=== PATIENT | male | born 1985 | race Caucasian/White ===

== ENCOUNTER 2017-02-02 05:08 | Emergency (ER) | payer OTHER, BC ==
[~2017-02-02] VITALS: Ht 188 cm; Wt 102.1 kg
[2017-02-02] MEDS ORDERED: TETANUS/DIPHTHERIA TOX ADSORB ADULT 0.5ML SYR/VIAL (90714) IM ONE (05:45)
--- NOTE | 2017-02-02 06:20 | REPUSA ---
CLINICAL HISTORY: Back pain. TECHNIQUE: Multiple axial images were obtained through the L1-L2, L2-L3, L3-L4, L4-L5 and L5-S1 inter spaces. Images were also reconstructed in coronal and sagittal planes. COMMENTS: Mild degenerative dextroscoliosis apex at L3. Mild diffuse spondylytic changes and moderate multilevel degenerative disc disease. Moderate chronic compression fracture of L1 vertebral body. Mild chronic compression fracture of T12 vertebral body. Diffuse Schmorl's node formation. Acute mildly displaced fractures of the right transverse processes of L1 and L2. Straightening of lumbar lordosis is seen, suggesting muscular spasm. There is evidence of multilevel disk disease, demonstrated by osteophytosis ad endplate sclerosis. Evaluation of individual levels reveals the following: At L4-L5 and L5-S1, broad-based disk protrusion in conjunction with hypertrophic facet disease result s in moderate bilateral foraminal narrowing. Canal is mildly stenotic. At L3-L4, broad-based disk bulge, results in mild bilateral foraminal narrowing. Canal is patent. L1-L2 and L2-L3 levels are unremarkable. IMPRESSION: Acute mildly displaced fractures of the right transverse processes of L1 and L2. Spondylosis. Thank you for your kind referral of this patient.
[2017-02-02] MEDS ORDERED: TRAM50TA2 PO (06:45)
[2017-02-02 07:00] VITALS: BP 132/86
== END 2017-02-02 07:03 | disposition home or self-care (01) ==
LOC: EDBD 05:08 → M ED 06:24
DX: S32.019A Unspecified fracture of first lumbar vertebra, initial encounter for closed fracture (principal); S32.029A Unspecified fracture of second lumbar vertebra, initial encounter for closed fracture; W10.8XXA Fall (on) (from) other stairs and steps, initial encounter; Y92.89 Other specified places as the place of occurrence of the external cause; Y93.01 Activity, walking, marching and hiking; Y99.9 Unspecified external cause status

== ENCOUNTER → 2020-02-20 | Outpatient (CLI) | payer BC, OTHER ==
[~2020-02-20] MED LIST: ISOVUE-370 76% 100ML VIAL (Q9967) As Ordered ONE; TRAM50TA2 PO
--- NOTE | 2020-02-20 15:37 | REP ---
SOFT-TISSUE NECK CT STUDY WITH IV CONTRAST: HISTORY: Swelling of the neck. Swelling of the left side of the tongue. No comparison study. CT CONTRAST DOSE: 75 mL of intravenous Isovue [address] FINDINGS: Preliminary digital automatic folder seamer radiograph is unremarkable. The visualized paranasal sinuses are clear. No mandibular, maxillary, or skull base erosive changes are seen. No intraorbital abnormality is appreciated. Visualized intracranial structures are unremarkable. There is no evidence of suprahyoid or infrahyoid mass or adenopathy. No cyst is seen. No glottic or subglottic airway lesion is seen. Thyroid lobes are normal and symmetric. Submandibular and parotid glands are normal and symmetric. Tonsillar and peritonsillar soft tissues are unremarkable. No soft tissue abnormality is seen in the region of the tongue or floor of mouth. No vascular abnormality is seen. The lung apices are clear. IMPRESSION: No evidence of neck mass or adenopathy seen. Electronically Signed by Néstor Acosta MD 02/20/2020 04:38 P
== END ==
LOC: M RAD 14:22
PROVIDERS: ATTEND Otolaryngology
DX: R22.1 Localized swelling, mass and lump, neck (principal)
CPT/HCPCS: 70491; Q9967